=== PATIENT | male | born 1940 | race Caucasian/White ===

== ENCOUNTER 2018-01-20 04:29 | Emergency (ER) | payer MEDICAID, SELFPAY ==
[2018-01-20 04:27] VITALS: BP 125/75; PULSE 98; RESP 20; TEMP 36.3; O2SAT 98; BMI 18.4
--- NOTE | 2018-01-20 04:56 | HMH.EDFALL ---
ED Disposition Clinical Impression: Contusion Qualifiers: Encounter type: initial encounter Contusion area: head Contusion of head detail: periocular area Laterality: left Qualified Code(s): S00.12XA - Contusion of left eyelid and periocular area, initial encounter Disposition: Home, Self-Care Condition on Discharge: Good Instructions: DI for Contusion, How to Prevent Falls Time of Disposition: 04:57 - Critical Care Critical Care Time: No Attestation: On 01/20/18, the high probability of a clinically significant, sudden or life threatening deterioration of the following system(s) required my full and direct attention, intervention and personal management. The time I documented below is in addition to time spent performing reported procedures but includes the following listed in this critical care notation. Medical Decision Making - Medical Records Medical records reviewed: Yes: I reviewed the patient's medical records. Vital Signs: 01/20/18 04:27 Temperature 97.4 F L Temperature Source Tympanic Pulse Rate [Right Brachial] 98 H Respiratory Rate 20 Blood Pressure [Right Arm] 125/75 Blood Pressure Mean [Right Arm] 91 Blood Pressure Source [Right Arm] Automatic Cuff Blood Pressure Position [Right Arm] Supine 02 Sat by Pulse Oximetry 98 Oxygen Delivery Method Room Air - Jose J Inquiry Pt receiving controlled substance: No - Reevaluation(s) Time: 05:28 Reevaluation #1: The patient appears at baseline, no additional imaging appears to be medically necessary at this time, based on the mechanism of injury as well as the height of the fall. Fall HPI - General Chief Complaint: Fall Stated Complaint: FALL Mode of Arrival: EMS Limitations: Physical Limitations Description of Symptoms (Recalled from ER Triage Doc. by RN): PATIENT FELL FROM LOW BED AND HIT LEFT SIDE OF FOREHEAD - History of Present Illness HPI Narrative: This is a 77-year-old [facility] male patient brought to the emergency room by EMS after he rolled out of his 3 inch high mattress laid on the floor, and the staff noticing a bruise on his left forehead. MD complaint: fall Onset (ago): minute(s) (30) Fall from: out of bed Fall witnessed: no Place fall occurred: [facility] Loss of consciousness: none Symptoms prior to fall: none Context: history of frequent falls Location of injury: head Severity: mild Associated symptoms (after fall): denies - Related Data Home Medications Medication Instructions Recorded Confirmed Acetaminophen 500 mg PO Q4HP PRN 01/20/18 01/20/18 Aspirin [Aspirin 325mg Tab] 325 mg PO DAILY 01/20/18 01/20/18 Bisacodyl [Bisacodyl 10mg Supp] 10 mg RC DAILYP PRN 01/20/18 01/20/18 Buspirone HCl [Buspar 10mg tablet] 10 mg PO BID 01/20/18 01/20/18 Esomeprazole Magnesium [Nexium] 40 mg PO DAILY 01/20/18 01/20/18 Ferrous Sulfate 325 mg PO DAILY 01/20/18 01/20/18 Gabapentin [Gabapentin 300mg Cap] 300 mg PO HS 01/20/18 01/20/18 Lactulose [Lactulose 20gm/30ml 30 ml PO DAILYP PRN 01/20/18 01/20/18 Oral Soln] Loratadine [Allergy] 10 mg PO DAILY 01/20/18 01/20/18 Quetiapine Fumarate [Seroquel 100 mg PO HS 01/20/18 01/20/18 100mg Tablet] Sennosides [Senokot 8.6mg tablet] 8.6 mg PO DAILY 01/20/18 01/20/18 Trazodone HCl 100 mg PO HS 01/20/18 01/20/18 guaiFENesin [Robitussin 200mg/10mL 10 ml PO Q4HP PRN 01/20/18 01/20/18 Syrup Udc] [facility] History I have reviewed the patient's past medical history: Yes Comment: Hydrocephalus, anxiety, malnurishment, seizure - Social History Alcohol Intake: never - Psychiatric History Expresses thoughts of harming self/others: None Suicide Plan Description: No Plan Family Hx:: No significant family history ROS Obtained: Yes unobtainable due to mental status - Neurologic Neurologic: Reports system reviewed and no additional complaints, except as docu, Reports as per HPI Physical Exam - General General appearance: alert, other (Confused) - Head Head
--- NOTE | 2018-01-20 04:59 | ED_ITS ---
ED Disposition Clinical Impression: Contusion Qualifiers: Encounter type: initial encounter Contusion area: head Contusion of head detail : periocular area Laterality: left Qualified Code(s): S00.12XA - Contusion of left eyelid and periocular area, initial encounter Disposition: Home, Self-Care Condition on Discharge: Good Instructions: DI for Contusion, How to Prevent Falls Time of Disposition: 04:57 - Critical Care Critical Care Time: No Attestation: On 01/20/18, the high probability of a clinically significant, sudden or life threatening deterioration of the following system(s) required my full and direct attention, intervention and personal management. The time I documented below is in addition to time spent performing reported procedures but includes the following listed in this critical care notation. Medical Decision Making - Medical Records Medical records reviewed: Yes: I reviewed the patient's medical records. Vital Signs: 01/20/18 04:27 Temperature 97.4 F L Temperature Source Tympanic Pulse Rate [Right Brachial] 98 H Respiratory Rate 20 Blood Pressure [Right Arm] 125/75 Blood Pressure Mean [Right Arm] 91 Blood Pressure Source [Right Arm] Automatic Cuff Blood Pressure Position [Right Arm] Supine 02 Sat by Pulse Oximetry 98 Oxygen Delivery Method Room Air - Jose J Inquiry Pt receiving controlled substance: No - Reevaluation(s) Time: 05:28 Reevaluation #1: The patient appears at baseline, no additional imaging appears to be medically necessary at this time, based on the mechanism of injury as well as the height of the fall. Fall HPI - General Chief Complaint: Fall Stated Complaint: FALL Mode of Arrival: EMS Limitations: Physical Limitations Description of Symptoms (Recalled from ER Triage Doc. by RN): PATIENT FELL FROM LOW BED AND HIT LEFT SIDE OF FOREHEAD - History of Present Illness HPI Narrative: This is a 77-year-old [facility] male patient brought to the emergency room by EMS after he rolled out of his 3 inch high mattress laid on the floor, and the staff noticing a bruise on his left forehead. MD complaint: fall Onset (ago): minute(s) (30) Fall from: out of bed Fall witnessed: no Place fall occurred: [facility] Loss of consciousness: none Symptoms prior to fall: none Context: history of frequent falls Location of injury: head Severity: mild Associated symptoms (after fall): denies - Related Data Home Medications Medication Instructions Recorded Confirmed Acetaminophen 500 mg PO Q4HP PRN 01/20/18 01/20/18 Aspirin [Aspirin 325mg Tab] 325 mg PO DAILY 01/20/18 01/20/18 Bisacodyl [Bisacodyl 10mg Supp] 10 mg RC DAILYP PRN 01/20/18 01/20/18 Buspirone HCl [Buspar 10mg tablet] 10 mg PO BID 01/20/18 01/20/18 Esomeprazole Magnesium [Nexium] 40 mg PO DAILY 01/20/18 01/20/18 Ferrous Sulfate 325 mg PO DAILY 01/20/18 01/20/18 Gabapentin [Gabapentin 300mg Cap] 300 mg PO HS 01/20/18 01/20/18 Lactulose [Lactulose 20gm/30ml 30 ml PO DAILYP PRN 01/20/18 01/20/18 Oral Soln] Loratadine [Allergy] 10 mg PO DAILY 01/20/18 01/20/18 Quetiapine Fumarate [Seroquel 100 mg PO HS 01/20/18 01/20/18 100mg Tablet] Sennosides [Senokot 8.6mg tablet] 8.6 mg PO DAILY 01/20/18 01/20/18 Trazodone HCl 100 mg PO HS 01/20/18 01/20/18 guaiFENesin [Robitussin 200mg/10mL 10 ml PO Q4HP SD
--- NOTE | 2018-01-20 05:07 | PC.NURSE ---
DISCHARGE REPORT GIVEN TO JACI PARISH (NURSE @ [place]). [facility] NOTIFIED THAT PATIENT IS READY FOR TRANSPORT BACK TO [place].
[2018-01-20 05:46] VITALS: BP 125/75; PULSE 98; RESP 20; TEMP 36.3; O2SAT 98
== END 2018-01-20 05:45 | disposition home or self-care (01) ==
PROVIDERS: Emergency Provider Emergency Medicine
DX: S00.12XA Contusion of left eyelid and periocular area, initial encounter (principal); W06.XXXA Fall from bed, initial encounter; Y92.199 Unspecified place in other specified residential institution as the place of occurrence of the external cause; F41.9 Anxiety disorder, unspecified; Z79.899 Other long term (current) drug therapy; G91.9 Hydrocephalus, unspecified; E46 Unspecified protein-calorie malnutrition; R56.9 Unspecified convulsions
CPT/HCPCS: 99281

== ENCOUNTER → 2018-03-15 09:34 | Outpatient (CLI) | payer MEDICAID, SELFPAY ==
--- NOTE | 2018-03-15 10:47 | FL_ITS ---
FL barium swallow modified INDICATION: ITS.REASON: DYSPHAGIA dysphagia with mechanical soft ground meets tiny liquids stool head. [facility] patient. . TECHNIQUE & FINDINGS: Study performed conjunction with speech pathologist Awilda morris. fluoroscopy time 4 minutes 30 seconds. Difficult patient study due to his slightly lack of cooperative positioning and slightly distorted position. Patient study the lateral projection with video esophagram recording. Various barium consistencies utilized to study swallowing mechanism.: ., nectar consistency by spoon and straw, Tiny liquid by spoon and straw Puree food thickened Pudding Ground food/mechanical soft .. Patient is spontaneously utilizes chin tuck with swallowing. [place] barium from cup, and with straw:Slightly poor bolus control resulting in premature spillage into the laryngeal vestibule seen with nectar thick liquids No monet aspiration observed . Otherwise Fairly straight the swallowing mechanism was initiated All consistencies demonstrate recurrent residual, mainly seen at the vallecula and less evident at piriform sinuses.. Frequently unusual reflux of the liquid and food material reflux from the vallecula back up into the oral cavity cavity noted.. . IMPRESSION:. Moderate impairment oral phase . Impaired bolus control resulting in premature spillage into laryngeal vestibule but can be seen with nectar thick liquids. Mild impairment of the frontal phase. Residual at the vallecula with reflect/regurgitation of material from this vallecula back into the oral cavity observed with all consistencies. Minimal laryngeal penetration intermittently observed but no prominent deep penetration. No aspiration. Patient is spontaneously utilizes chin tuck with swallowing Please see speech pathology/speech therapy review and recommendations. Thank you
== END ==
PROVIDERS: PCP Internal Medicine; Visit Provider Internal Medicine
DX: R13.10 Dysphagia, unspecified (principal)
CPT/HCPCS: 70371; 92611

== ENCOUNTER → 2018-08-24 13:05 | Outpatient (CLI) | payer MEDICAID, SELFPAY ==
--- NOTE | 2018-08-24 13:09 | FL_ITS ---
FL barium swallow modified Ordering Physician: Mani Marie MD Patient Age: 78 years: Male HISTORY: ITS.REASON: DYSPHAGIA FL barium swallow modified INDICATION: ITS.REASON: DYSPHAGIA dysphagia patient clearly currently on pureed and pudding TECHNIQUE & FINDINGS: Study performed conjunction with these pathologist Awilda morris. And associated 1 minute 28 seconds seconds fluoroscopy. Patient study the lateral projection with video esophagram recording. Various barium consistencies utilized to study swallowing mechanism. . The patient is severely impaired and has difficulty forming and controlling bolus on oral phase and all consistencies. Bolus falls prematurely over the back of the tongue with all consistencies. IUD demonstrated penetration into into the laryngeal vestibule with honey thick consistencies. On frequently observed residual within the vallecula and piriform sinuses with all consistencies. This cleared with multiple swallows. There is noted to be recurrent regurgitation of vallecular residue back into oral cavity . Again observed poor bolus formation, impaired mastication. Impaired lingual propulsion. No monet aspiration however observed only some questionable scant penetration with honey consistency. . . IMPRESSION:. Severely impaired oral phase with all consistencies.. Impaired coordination and strength of swallowing mechanism Premature passage of the bolus over base of tongue into the vallecula with spillover to the piriform sinuses. Diminished strength & coordination of swallowing reflex, but no definitive aspiration was observed with pudding and puree consistencies... Only scant trace penetration questioned with with honey consistency Please see review recommendations from speech pathology
--- NOTE | 2018-08-24 14:15 | HMH.SLMBS2 ---
Speech & Language Evaluation Speech/Language Mod Barium Swallow Start: 08/24/18 14:05 Freq: once Status: Complete Protocol: Document 08/24/18 14:05 CHAD (Rec: 08/24/18 14:15 CHAD [id number]) [facility] [place] Diet Dietary Recommendations Pureed Pudding Liquids Treatment/Strategies Strategy/Precaution Recommend Sitting Upright (90 deg) Liquids from Spoon Mod Barium Swallow Impressions Summary and Impressions Oral Phase Impression Severe Impairment Oral Phase Summary Patient has difficulty forming and controlling bolus with all consistenices. Bolus falls prematurely over the back of the tongue with all consistencies. Pharyngeal Phase Impression Moderate Impairment Pharyngeal Phase Summary Patient exhibited penetration into laryngeal vestibule with honey thick consistency. He had residue in valleculae and pyriform sinuses with all consistencies but cleared with multiple swallows. He regurgitates vallecular residue back into the oral cavity to swallow. Speech/Language MBS Assessment/Goals/Plan Assessment Date of Evaluation: 08/24/18 Evaluation Type Initial Certification Assessment/Problems dysphagia Does Patient Qualify for Service Yes Qualify/Failure Comment Follow up with [facility] at [facility] for further recommendations Plan Pt/Guardian verbally ack understanding No of dx/prognosis/goals G -code Required Yes G-CODES ST Current Status [id number] ST Current Status Modifier CM-At least 80% but less than 100% impaired, limited or restricted ST Goal Status [id number] ST Goal Status Modifier CM-At least 80% but less than 100% impaired, limited or restricted Mod Barium Swallow Setup Exam Setup Radiologist Warren Mast Level of Consciousness Awake Restless Position (degrees) 135 Comment Approximately 135 degrees Mod Barium Swallow-Lat View Textures Lateral View Food Presentation Honey Liquid via Spoon Pureed Food- Thick Pudding Oral Phase Labial Closure No Impairme
== END ==
PROVIDERS: PCP Emergency Medicine; Visit Provider Emergency Medicine
DX: R13.10 Dysphagia, unspecified (principal)
CPT/HCPCS: 70371; 92611

== ENCOUNTER → 2019-01-14 00:07 | Outpatient (CLI) | payer MEDICAID, SELFPAY ==
[2019-01-14 00:39] LABS: Anion Gap 11.3 mEq/L (5-15); Blood Urea Nitrogen 15 mg/dL (7-18); Calcium 8.3 mg/dL (8.5-10.1); Carbon Dioxide 27 mmol/L (21.0-32.0); Chloride 100 mmol/L (98-107); Creatinine,Serum 0.65 mg/dL (0.70-1.30); Estimated Glomerular Filt Rate 119 ml/min (>60); GFR (African American) 143 ML/MIN (>60); Glucose 131 mg/dL (74-106); Potassium 4.3 mmoL/L (3.5-5.1); Sodium 134 mmol/L (136-145)
== END ==
PROVIDERS: Visit Provider Emergency Medicine
DX: C34.90 Malignant neoplasm of unspecified part of unspecified bronchus or lung (principal); D64.9 Anemia, unspecified; E46 Unspecified protein-calorie malnutrition; G40.901 Epilepsy, unspecified, not intractable, with status epilepticus
CPT/HCPCS: 80048